=== PATIENT | male | born 1985 | race Caucasian/White ===

== ENCOUNTER 2020-07-01 12:07 | Emergency (ER) | payer OTHER, SELFPAY ==
[2020-07-01 12:17] VITALS: BP 138/70; PULSE 74; RESP 18; TEMP 36.7; O2SAT 100; BMI 33.2
--- NOTE | 2020-07-01 17:18 | ED_ITS ---
HPI - General Adult General Chief complaint: General Medical <Hernando Perez NP - Last Filed: 07/01/20 17:20> Stated complaint: covid testing <Hernando Perez NP - Last Filed: 07/01/20 17:20> Time Seen by Provider: 07/01/20 12:35 <Hernando Perez NP - Last Filed: 07/01/20 17:20> Source: patient <Hernando Perez NP - Last Filed: 07/01/20 17:20> Mode of arrival: ambulatory <Hernando Perez NP - Last Filed: 07/01/20 17:20> Limitations: no limitations <Hernando Perez NP - Last Filed: 07/01/20 17:20> History of Present Illness HPI narrative: here for COVID Test no symptoms. 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 <Hernando Perez NP - Last Filed: 07/01/20 17:20> Related Data Allergies/adverse reactions: Allergies Allergy/AdvReac Type Severity Reaction Status Date / Time No Known Allergies Allergy Verified 07/01/20 12:22 [No Known Allergies*] <Hernando Perez NP - Last Filed: 07/01/20 17:20> Review of Systems Review of Systems: Yes all other systems are reviewed and are negative <Hernando Perez NP - Last Filed: 07/01/20 17:20> FOR[facility], LAT[facility] Past Medical History Attestation statement: The following information was validated with the patient. <Hernando Perez NP - Last Filed: 07/01/20 17:20> Medical History: Medical History (Updated 07/01/20 @ 12:52 by Hernando Perez NP) No known health problems <Hernando Perez NP - Last Filed: 07/01/20 17:20> Social History Social History: Social History Alcohol intake: never Smoked in Last 30 Days: No Use of substances other than those prescribed or required for medical reasons: No Advance Directives: No Advance Directives Information Provided: No <Hernando Perez NP - Last Filed: 07/01/20 17:20> Physical Exam Vital Signs and I&O and Narrative: Vital Signs and I&O: Vital Signs Temp 98.0 F 07/01/20 12:17 Pulse 74 07/01/20 12:17 Resp 18 07/01/20 12:17 BP 138/70 07/01/20 12:17 Pulse Ox 100 07/01/20 12:17 Intake & Output 06/30/20 07/01/20 07/01/20 18:59 06:59 18:59 Weight 111.13 kg Body Mass Index 33.2 <Hernando Perez NP - Last Filed: 07/01/20 17:20> Vital Signs and I&O: Vital Signs Temp 98.0 F 07/01/20 12:17 Pulse 74 07/01/20 12:17 Resp 18 07/01/20 12:17 BP 138/70 07/01/20 12:17 Pulse Ox 100 07/01/20 12:17 Intake & Output 06/30/20 07/01/20 07/01/20 18:59 06:59 18:59 Weight 111.13 kg Body Mass Index 33.2 <Erasto Rey DO - Last Filed: 07/01/20 17:40> Const: General: cooperative and Physically active <Hernando Perez NP - Last Filed: 07/01/20 17:20> Nutritional Appearance: average body habitus <Hernando Perez NP - Last Filed: 07/01/20 17:20> Orientation/consciousness: oriented to person, oriented to place, oriented to time and patient oriented x3 <Hernando Perez NP - Last Filed: 07/01/20 17:20> Neuro: General: oriented to person, oriented to place, oriented to time and patient oriented x3 <Hernando Perez NP - Last Filed: 07/01/20 17:20> Course Course Hospital Course: COVid 19 pending <Hernando Perez NP - Last Filed: 07/01/20 17:20> Discharge Plan Discharge Clinical Impression: Acute viral syndrome <Hernando Perez NP - Last Filed: 07/01/20 17:20> Patient Disposition: Home, Self-Care <Hernando Perez NP - Last Filed: 07/01/20 17:20> Instructions: Viral Syndrome (ED) <Hernando Perez NP - Last Filed: 07/01/20 17:20> Additional Instructions: Based on your symptoms and history we have sent a COVID-19. Although your RESULT IS PENDING at this time. RESULTS should return within 72 hours. At this time you will be contacted with either NEGATIVE OR POSITIVE results. -Please wait until we contact you for your results. At this time you will be okay for discharge. Please plan for self quarantine for up to 14 days. Do not expose yourself to others. You may not go to work. If testing does come back negative you may return to activities as long as you are no longer having any symptoms for at least 3 days. Please continue to follow cold instructions and wash your hands frequently. You may take Tylenol as directed on the bottle for pain or fever. Patient seen in the emergency department on 03/23/2020 and should be excused from work until negative test results AND until 72 hours without any symptoms AND at least 10 days have passed since symptoms first appeared or since last exposure to COVID-19 positive patient CDC Guidelines for home isolation: - Stay away from others - WEAR A MASK if you are sick AND STAY HOME - Cover your mouth and nose with a tissue when you cough or sneeze. Dispose of tissues in a lined trash can and wash your hands immediately with soap and water for at least 20 seconds. If soap and water are not available, clean hands with alcohol-based hand assembler dc field ring that contains at least 60% alcohol. - Clean your hands often with soap and water for at least 20 seconds - Avoid touching your eyes, nose and mouth with unwashed hands - Do not share dishes, drinking glasses, cups, eating utensils, towels, or bedding with other people in your home. After using these items, wash them thoroughly with soap and water or put in the railroad carman. - Clean high-touch surfaces in your isolation area ( sick room and bathroom) every day; let a caregiver clean and disinfect high-touch surfaces in other areas of the home. Clean the area or item with soap and water or another detergent if it is dirty. Then, use a household disinfectant. - Limit contact with pets and animals: If you must care for a pet, wash your gilmore ds before and after interacting with them <Hernando Perez NP - Last Filed: 07/01/20 17:20> Stand Alone Forms: Work/School Release <Hernando Perez NP - Last Filed: 07/01/20 17:20> Interventions: ED Discharge Assessment Last Done: 07/01/20 12:56 <Hernando Perez NP - Last Filed: 07/01/20 17:20> Discharge Date/Time: 07/01/20 13:04 <Hernando Perez NP - Last Filed: 07/01/20 17:20>
== END 2020-07-01 13:04 | disposition home or self-care (01) ==
PROVIDERS: Nurse Practitioner Primary Care; Emergency Provider Emergency Medicine; PCP Internal Medicine
DX: B34.9 Viral infection, unspecified (principal); Z20.828 Contact with and (suspected) exposure to other viral communicable diseases
CPT/HCPCS: 36415; 87635; 99283

== ENCOUNTER 2024-04-20 12:05 | Outpatient (AMB) | payer BC, SELFPAY ==
[2024-04-20 12:06] VITALS: BP 110/80; PULSE 71; O2SAT 97; BMI 36.2
--- NOTE | 2024-04-20 12:06 | HO.NEPHOV_ITS ---
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 His weight has been fluctuant. He is trying to get back to school to pursue higher degree. He is compliant with medications. His blood pressure has been at goal. He is not very strict with low-sodium diet. He does not have any chest pain, shortness of breath, dizziness, pedal edema, hematuria, side effects from his angiotensin receptor any. He maintains good hydration. He feels well [facility] Medical History (Updated 04/20/24 @ 13:38 by Les Hickey MD) Hypertension No known health problems Family History Father Kidney disease Hypertension Social History Alcohol intake: never Review of Systems Const All systems reviewed & are unremarkable except as noted in HPI and below Physical Exam Vital Signs: Last Vital Signs Pulse 71 04/20/24 12:06 BP 110/80 04/20/24 12:06 Pulse Ox 97 04/20/24 12:06 Oxygen Delivery Method Room Air 04/20/24 12:06 BMI result Body Mass Index 36.2 Const General: comfortable and no acute distress Orientation/consciousness: patient oriented x3 HEENT Head: Yes normocephalic Mouth: Normal oral and palatal mucosa present Eyes EOM: EOMs intact bilaterally Neck Neck: Yes supple Resp Auscultation: clear to auscultation bilaterally Cardio Jugular venous distension: no JVD Rate: regular rate GI Palpation (GI): Soft to palpation Auscultation: normal bowel sounds General: Yes no CVA tenderness Back/Spine/Pelvis Back: no CVA tenderness Skin General skin exam: no rashes or lesions noted Neuro General: patient oriented x3 and moves all extremities Extrem General: Yes no pedal edema Results Reviewed Nephrology Results: No Data to Display Assessment & Plan Assessment & Plan (1) Hypertension: Code(s): I10 - Essential (primary) hypertension Category: Medical Qualifiers: Hypertension type: primary hypertension Qualified Code(s): I10 - Essential (primary) hypertension Plan Marc is known to have longstanding hypertension. He is compliant with losartan 50 mg once daily. His blood pressure is at goal. His volume status is optimal. He should be on a low-sodium diet. He should lose weight. Given his challenge in losing weight I ordered a thyroid function test. He has not had a blood chemistry, renal functions, urine studies and lipid profile for some time which I ordered as well. He has in his medications and did not want any refill but said he will call the office when he needs them. I encouraged him to continue to remain well hydrated and avoid nonsteroidal anti-inflammatories. I would not make any medication changes today. Answered all questions. Follow-up appointment given. Orders: Orders Protein Creatinine Ratio, Ur Today I10 - Essential (primary) hypertension Blood Urea Nitrogen Today I10 - Essential (primary) hypertension TSH reflex Free T4 Today I10 - Essential (primary) hypertension UA and rflx microscopic Today I10 - Essential (primary) hypertension Lipid Panel Today I10 - Essential (primary) hypertension Creatinine Today I10 - Essential (primary) hypertension Electrolytes Today I10 - Essential (primary) hypertension Coding Level of Care Code Est Pt Level 4 (57689) Diagnoses Primary hypertension I10 Hypertension type: primary hypertension
== END 2024-04-20 15:50 | disposition home or self-care (01) ==
PROVIDERS: PCP Internal Medicine; Visit Provider Internal Medicine Nephrology
DX: I10 Essential (primary) hypertension (principal)
CPT/HCPCS: 99214

== ENCOUNTER → 2024-04-20 12:05 | Outpatient (BNVA) | payer BC, SELFPAY | PROVIDERS: PCP Internal Medicine; Visit Provider Internal Medicine Nephrology ==